=== PATIENT | male | born 1990 ===

== ENCOUNTER 2017-01-22 14:29 | Emergency (ER) | payer SELFPAY ==
[2017-01-22 14:35] VITALS: O2SAT 98
--- NOTE | 2017-01-22 15:31 | RAD ---
PROCEDURE: Right Hand Radiographs. HISTORY: pain COMPARISON: None. FINDINGS: BONES: There is acute comminuted and mildly angulated fracture at the base of 5th metacarpal bone. JOINTS: Normal. No osteoarthritic changes. SOFT TISSUES: Normal. OTHER FINDINGS: None. IMPRESSION: Acute fracture at the base of the 5th metacarpal bone.
--- NOTE | 2017-01-22 15:51 | C.PDOC ---
History Of Present Illness 26 year old male presents to the ED c/o right hand pain after he punched a wall [employer]. Patient is right hand dominant, denies any change in sensation. Time Seen by Provider: 01/22/17 14:44 Chief Complaint (Nursing): Finger,Hand,&Wrist History Per: Patient History/Exam Limitations: no limitations Onset/Duration Of Symptoms: Hrs Current Symptoms Are (Timing): Still Present Quality: "Pain" Recent travel outside of the [place]: No Additional History Per: Patient Past Medical History Reviewed: Historical Data, Nursing Documentation, Vital Signs Vital Signs: Last Vital Signs Temp 97.8 F 01/22/17 15:52 Pulse 87 01/22/17 16:00 Resp 18 01/22/17 16:00 BP 124/79 01/22/17 15:52 Pulse Ox 98 01/22/17 16:08 - Medical History PMH: No Chronic Diseases Surgical History: No Surg Hx Family History: States: Unknown Family Hx - Social History Hx Alcohol Use: Yes Hx Substance Use: No - Immunization History Hx Influenza Vaccination: No Hx Pneumococcal Vaccination: No Review Of Systems Constitutional: Negative for: Fever, Chills Cardiovascular: Negative for: Chest Pain Respiratory: Negative for: Cough, Shortness of Breath Gastrointestinal: Negative for: Nausea, Vomiting, Abdominal Pain Musculoskeletal: Positive for: Hand Pain Neurological: Negative for: Weakness, Numbness Physical Exam - Physical Exam Appears: Non-toxic, No Acute Distress Skin: Normal Color, Warm, Dry Head: Atraumatic, Normacephalic Eye(s): bilateral: Normal Inspection, EOMI Nose: Normal Oral Mucosa: Moist Neck: Normal ROM, Supple Chest: Symmetrical Respiratory: No Accessory Muscle Use Extremity: Normal ROM, Tenderness (Right proximal 5th metacarpal), Capillary Refill (<2 sec), Swelling Pulses: Left Radial: Normal, Right Radial: Normal Neurological/Psych: Oriented x3, Normal Speech, Normal Cognition, Normal Sensation ED Course And Treatment O2 Sat by Pulse Oximetry: 98 Pulse Ox Interpretation: Normal - Other Rad Right Hand X-Ray X-Ray: Interpreted by Me, Viewed By Me Interpretation: PROCEDURE: Right Hand Radiographs. HISTORY: pain. COMPARISON : None. FINDINGS: BONES: There is acute comminuted and mildly angulated fracture at the base of 5th metacarpal bone. JOINTS: Normal. No osteoarthritic changes. SOFT TISSUES: Normal. OTHER FINDINGS: None. IMPRESSION: Acute fracture at the base of the 5th metacarpal bone. Progress Note: Plan : -Tylenol 650 mg PO given. - Right hand X-Ray ordered. Patient was placed in a ulnar gutter splint applied by the me. Instructed to follow up with hand specialist in 1-2 days. Disposition - Disposition Referrals: Maryam Fung MD [Staff Provider] - Disposition: HOME/ ROUTINE Disposition Time: 15:47 Condition: STABLE Additional Instructions: Rest, ice, and elevate. Follow up with primary medical doctor in 1-3 days without fail for further evaluation. Take medications as prescribed. Return to the emergency department at any time if symptoms persist or worsen. Prescriptions: Naproxen [Naprosyn] 1 tab PO BID PRN #20 tab PRN Reason: Pain oxyCODONE/Acetaminophen [Percocet 5/325 mg Tab] 1 tab PO QID PRN #10 tab PRN Reason: Pain Instructions: Hand Fracture (ED) Forms: [facility] (Urdu) - Clinical Impression Clinical Impression: Fracture of fifth metacarpal bone - PA / SPIRITUAL COUNSELOR / Resident Statement MD/DO has reviewed & agrees with the documentation as recorded. - Scribe Statement The provider has reviewed the documentation as recorded by the Scribe Piotr Acevedo All medical record entries made by the Scribe were at my direction and personally dictated by me. I have reviewed the chart and agree that the record accurately reflects my personal performance of the history, physical exam, medical decision making, and the department course for this patient. I have also personally directed, reviewed, and agree with the discharge instructions and disposition.
[2017-01-22 15:52] VITALS: BP 124/79; RESP 18; TEMP 97.8
[2017-01-22 16:26] VITALS: PULSE 87
== END 2017-01-22 16:00 | disposition home or self-care (01) ==
LOC: C.ER 14:29
DX: S62.316A Displaced fracture of base of fifth metacarpal bone, right hand, initial encounter for closed fracture (principal); W22.01XA Walked into wall, initial encounter; Y92.89 Other specified places as the place of occurrence of the external cause